=== PATIENT | male | born 1985 | race Two or more races ===

== ENCOUNTER 2024-03-25 12:13 | Emergency (ER) | payer OTHER ==
[~2024-03-25] VITALS: Ht 167.6 cm; Wt 72.6 kg
[2024-03-25] MEDS ORDERED: KETOROLAC TROMETHAMINE 60 MG VIAL IM ONE (13:45)
[2024-03-25] MEDS ORDERED: DICLOFENAC SODI75 MG PO (14:10)
== END 2024-03-25 14:16 | disposition home or self-care (01) ==
LOC: ER 12:13
DX: S20.219A Contusion of unspecified front wall of thorax, initial encounter (principal); S90.31XA Contusion of right foot, initial encounter; V19.9XXA Pedal cyclist (driver) (passenger) injured in unspecified traffic accident, initial encounter; Y93.89 Activity, other specified; Y92.89 Other specified places as the place of occurrence of the external cause; Y99.9 Unspecified external cause status